=== PATIENT | female | born 1930 | race Caucasian/White ===

== ENCOUNTER → 2017-05-30 | Outpatient (CLI) | payer OTHER ==
[~2017-05-30] VITALS: Ht 177.8 cm; Wt 105.7 kg
[~2017-05-30] MED LIST: BYSTOLIC10 MG PO; CALCIUM; CALTRATE 600 +1 EAC1 PO; CELEXA20 MG PO; DAILY MULTIPLE1 EACH PO; FIORICET,ESG1 TABLET PO; FISH OIL; LEXAPRO10 MG PO; METOPROLOL SUCC25 MG PO; SPIRIVA1 INHALATI IH; SYMBICORT60 INHALAT IH; ZOFRAN4 MG PO; [UNRECOGNIZED DRUG - OTHER]
== END | disposition home or self-care (01) ==
LOC: OPR 08:15 → EDSTATUS 09:00
PROC: 0BBC3ZX Excision of Right Upper Lung Lobe, Percutaneous Approach, Diagnostic (ICD-10-PCS; principal; 2017-05-30)
DX: J84.10 Pulmonary fibrosis, unspecified (principal); J85.0 Gangrene and necrosis of lung; J44.9 Chronic obstructive pulmonary disease, unspecified; Z87.891 Personal history of nicotine dependence; I10 Essential (primary) hypertension; K21.9 Gastro-esophageal reflux disease without esophagitis; E78.5 Hyperlipidemia, unspecified; E04.2 Nontoxic multinodular goiter; Z88.5 Allergy status to narcotic agent; Z88.8 Allergy status to other drugs, medicaments and biological substances
CPT/HCPCS: 71010; 77012; J3010